=== PATIENT | female | born 1980 | race Caucasian/White ===

== ENCOUNTER 2016-11-04 06:39 | Emergency (ER) ==
[2016-11-04] MEDS ORDERED: ZOFRAN ODT PO ONE (07:48)
[2016-11-04 07:57] VITALS: BP 188/127
[2016-11-04 08:07] LABS: URINE SOURCE CLEAN CATCH
[2016-11-04 08:27] LABS: BILIRUBIN URINE NEGATIVE (NEGATIVE); BLOOD URINE 2+ (NEGATIVE); CLARITY CLEAR (CLEAR); COLOR YELLOW; GLUCOSE URINE NEGATIVE (NEGATIVE); LEUKOCYTES URINE 2+ (NEGATIVE); NITRITE URINE NEGATIVE (NEGATIVE); PROTEIN URINE NEGATIVE (NEGATIVE); SP GRAVITY URINE 1.015; UROBILINOGEN URINE NORMAL
[2016-11-04 08:33] LABS: URINE CULTURE PL NEEDED? YES; URINE EPITHELIAL CELLS >10 /HPF (<10)
[2016-11-04] MEDS ORDERED: THORAZINE IM ONE (08:53)
[2016-11-04] MEDS ORDERED: FLAGYL PO ONE (08:53)
[2016-11-04] MEDS ORDERED: FLAGYL ONE (08:59)
--- NOTE | 2016-11-04 09:12 | PROVIDER DOCUMENTATION ---
HPI-Abdominal Pain/GI Problem - General Chief Complaint: Nausea/Vomiting Stated Complaint: VOMITING Time Seen by Provider: 11/04/16 07:52 Source: patient Allergies/Adverse Reactions: Patient Allergies Allergy/AdvReac Type Severity Reaction Status Date / Time No Known Allergies Allergy Verified 11/04/16 07:56 Home Medications: Hydrocodone/Acetaminophen [[place] 7.5-325 Tablet] 1 each PO BID 10/18/16 Lisinopril/Hydrochlorothiazide [Lisinopril-Hctz 20-12.5 mg Tab] 1 each PO DAILY 10/18/16 - History of Present Illness-ABD Nature of Presenting Problems: Reports to er with cc of nausea and vomiting since yesterday with epigastric pain from vomiting. Pt reports possible bladder infection with dysuria. Denies f ,c,d. Abdominal Pain Onset Location: reports: epigastric Quality of Pain: reports: aching Severity in ED: reports: moderate Onset/Duration: reports: 24 hours ago Timing: reports: still present Bruising or Bleeding Gums?: No Similar Symptoms Previously?: No Recently seen or treated by another doctor?: No Review of Systems - Adult - REVIEW OF SYSTEMS - ADULT Constitutional: denies: chills, fever, fatique Eyes: reports: no symptoms reported Ears, Nose, Mouth & Throat: reports: no symptoms reported Cardiovascular: denies: chest pain, irregular heart rate, orthopnea Respiratory: denies: cough, shortness of breath, wheezing Gastrointestinal: reports: abdominal pain, nausea, vomiting. denies: diarrhea, difficulty swallowing, frequent heartburn Genitourinary: reports: see HPI, dysuria. denies: frequent UTI's, hematuria, hesitency Musculoskeletal: reports: no symptoms reported Integumentary: reports: no symptoms reported Neurological: reports: no symptoms reported Psychiatric: reports: no symptoms reported Endocrine: reports: no symptoms reported Hematologic/Lymphatic: reports: no symptoms reported Allergic/Immunologic: reports: no symptoms reported All Other Systems: Reviewed and Negative Past History - Adult - PAST MEDICAL HISTORY-ADULT Review of Records: reports: Nursing Assessment Review Major Childhood Illnesses: reports: denies history Cardiovascular: reports: HTN, hyperlipidemia Respiratory: reports: denies history, other (heavy smoker) Gastrointestinal: reports: GERD, other (cyclic vomiting syndrome) Obstetrical/Gynecological: denies: ectopic , PID/STD Genitourinary: reports: chronic UTI's, other Musculoskeletal: reports: chronic pain (back), intervertebral disc disease, other (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) Neurological: reports: denies history Psychiatric: reports: bipolar Endocrine/Immune: reports: Diabetes (gestational) Other Conditions: reports: denies history - PRIOR SURGERIES/PROCEDURES Surgical/Procedure History: reports: orthopedic (extremity) (fixed club feet) - PRIOR HOSPITALIZATIONS Prior Hospitalizations: reports: for similar symptoms - IMMUNIZATION STATUS Childhood Immunizations: See Nurse Assessment Flu Vaccine: See Nurse Assessment - FAMILY HISTORY Family History: reviewed, not pertinent - SOCIAL HISTORY Smoking: denies Substance Use: alcohol Alcohol Use Frequency: occasionally Physical Exam-General - PHYSICAL EXAM-ADULT Initial Vital Signs Reviewed: Yes - CONSTITUTIONAL General Appearance: appears well, alert, no apparent distress, other (vomited twice while in ER) - EYES Eyes: PERRL/EOMI, pink conjunctivae - HEAD, EARS, NOSE, MOUTH & THROAT HENMT: normocephalic/atraumatic, moist mucous membranes, normal ENT inspection, TMs normal, pharynx normal - NECK Neck: non-tender, full range of motion, normal inspection - RESPIRATORY Respiratory: chest non-tender, lungs clear, normal breath sounds - CARDIOVASCULAR Cardiovascular: normal peripheral pulses, regular rate, rhythm, no edema, no gallop, no JVD, no murmur - GASTROINTESTINAL (ABDOMEN) Abdominal Exam: normal bowel sounds, soft, no organomegaly, no pulsatile mass, tenderness (mild ttp epi) - LYMPHATIC Lymphatic: no adenopathy - MUSCULOSKELETAL Back Exam: normal inspection, no CVA tenderness, no vertebral tenderness Extremity: normal range of motion, non-tender - SKIN Integumentary: normal color, normal turgor, warm/dry - NEUROLOGIC Neurologic: grossly normal, no motor/sensory deficits - PSYCHIATRIC Psych/Mental Status: normal mood/affect, normal thought content, normal thought process, oriented x 3 Progress - PLAN OF CARE/RESULTS Progress/Plan/Lab Results: Orders Category Date Time Status TEST-URINE [PREG] Stat Lab 11/04/16 08:00 Completed UA [URINALYSIS PL W/POSS RFLX CULT] [URINALYSIS] Stat Lab 11/04/16 08:00 Completed URINE CULTURE [RM] Routine Lab 11/04/16 08:34 Ordered Chlorpromazine [Thorazine] Med 11/04/16 08:53 Discontinued 50 mg IM NOW ONE Metronidazole [Flagyl] Med 11/04/16 08:59 Discontinued 500 mg .ROUTE .STK-MED ONE Metronidazole [Flagyl] Med 11/04/16 08:53 Discontinued 500 mg PO NOW ONE Ondansetron Odt [Zofran Odt] Med 11/04/16 07:48 Discontinued 8 mg PO NOW ONE Vital Signs - 24 hr 11/04/16 07:53 Temperature 97.6 F Pulse Rate 76 Respiratory 18 Rate Blood Pressure 188/127 O2 Sat by Pulse 98 Oximetry Laboratory Tests 11/04/16 11/04/16 08:00 08:00 Urine Source CLEAN CATCH Urine Color YELLOW Urine Clarity CLEAR Urine pH 8.0 Ur Specific [place] 1.015 Urine Protein NEGATIVE Urine Ketones 1+(Small) A Urine Blood 2+ A Urine Nitrite NEGATIVE Urine Bilirubin NEGATIVE Urine Urobilinogen NORMAL Urine Microscopic RBC 10-20 A Urine WBC 2+ A Urine Microscopic WBC 10-20 A Ur Epithelial Cells >10 A Urine Bacteria 1+ Urine Glucose NEGATIVE Urine Test NEGATIVE Departure - Departure Time of Disposition Order: 09:12 DIAGNOSIS: UTI (urinary tract infection) Qualifiers: Urinary tract infection type: site unspecified Hematuria presence: without hematuria Qualified Code(s): N39.0 - Urinary tract infection, site not specified Nausea & vomiting Qualifiers: Vomiting type: unspecified Vomiting Intractability: non-intractable Qualified Code(s): R11.2 - Nausea with vomiting, unspecified Disposition: HOME 01 Certified Medical Emergency: Emergent Condition: Stable Additional Instructions: Drink plenty of fluids ED Follow Up Instructions: You have been treated by a care provider in the Emergency Department. These instructions are being provided to you so you can have an understanding of how to care for yourself upon discharge. Upon discharge from the Emergency Department, you are responsible for making arrangements for follow-up care by a physician of your choice. Take all prescribed medications as directed. Return to the Emergency Department immediately for any new or worsening symptoms. You may call the Physician Referral phone number at [phone] to obtain a list of Physicians who are taking new patients. Attestation - Scribe Verification/Attestation Scribe:: Victorina Parks Acting as Scribe for:: Carli Parks Scribe documention review:: This chart was documented by a scribe and accurately reflects the service the provider performed and the decisions made by the provider.
== END 2016-11-04 10:24 | disposition home or self-care (01) ==
LOC: P.ED 06:39
DX: N39.0 Urinary tract infection, site not specified (principal); R11.2 Nausea with vomiting, unspecified; R10.13 Epigastric pain; R30.0 Dysuria; R10.816 Epigastric abdominal tenderness; I10 Essential (primary) hypertension; E78.5 Hyperlipidemia, unspecified; K21.9 Gastro-esophageal reflux disease without esophagitis; G89.29 Other chronic pain; M54.9 Dorsalgia, unspecified; Z79.899 Other long term (current) drug therapy; Z87.440 Personal history of urinary (tract) infections
CPT/HCPCS: 81001; 81025; 87088; 96372; J3230

== ENCOUNTER 2016-11-04 18:07 | Emergency (ER) ==
--- NOTE | 2016-11-04 19:14 | PROVIDER DOCUMENTATION ---
HPI-General Adult <Damien CorriganAlexandra - Last Filed: 11/04/16 22:18> - General Source: patient - History of Present Illness -Gen Adult Nature of Presenting Problems: 36 y/o f presents to the ed with N/V with an onset of yesterday. pt states she hasn't been able to keep anything down. upon arrival, per nurse the pt was sticking her fingers in her throat causing herself to vomit. pt denies any other symptoms. Pt has a 7 yr hx of N/V and currently is a pt of Dr. Miller (GI) . Location of Pain/Injury: reports: generalized Pain Radiation: reports: no radiation Quality of Pain: reports: aching Severity: reports: mild Onset/Duration: reports: 24 hours ago Timing: reports: still present Associated Symptoms: reports: nausea, vomiting Similar Symptoms Previously?: No Recently seen or treated by another doctor?: No <Katty Cardozo - Last Filed: 11/04/16 23:15> - General Chief Complaint: Nausea/Vomiting Stated Complaint: VOMITING Time Seen by Provider: 11/04/16 19:07 Allergies/Adverse Reactions: Patient Allergies Allergy/AdvReac Type Severity Reaction Status Date / Time No Known Allergies Allergy Verified 11/04/16 20:11 Home Medications: Hydrocodone/Acetaminophen [[place] 7.5-325 Tablet] 1 each PO BID 10/18/16 Lisinopril/Hydrochlorothiazide [Lisinopril-Hctz 20-12.5 mg Tab] 1 each PO DAILY 10/18/16 Review of Systems - Adult - REVIEW OF SYSTEMS - ADULT Constitutional: denies: chills, fever Cardiovascular: denies: chest pain, palpitations Gastrointestinal: reports: nausea, vomiting. denies: constipation, diarrhea <Katty Cardozo - Last Filed: 11/04/16 23:15> Past History - Adult - PAST MEDICAL HISTORY-ADULT Review of Records: reports: Old Records Reviewed, Nursing Assessment Review, Medications Reviewed Major Childhood Illnesses: reports: denies history Cardiovascular: reports: HTN, hyperlipidemia Respiratory: reports: denies history, other (heavy smoker) Gastrointestinal: reports: GERD, other (cyclic vomiting syndrome) Obstetrical/Gynecological: denies: ectopic , PID/STD Genitourinary: reports: chronic UTI's, other Musculoskeletal: reports: chronic pain (back), intervertebral disc disease, other (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) Neurological: reports: denies history Psychiatric: reports: bipolar Endocrine/Immune: reports: Diabetes (gestational) Other Conditions: reports: denies history - PRIOR SURGERIES/PROCEDURES Surgical/Procedure History: reports: orthopedic (extremity) (fixed club feet) - PRIOR HOSPITALIZATIONS Prior Hospitalizations: reports: for similar symptoms - IMMUNIZATION STATUS Childhood Immunizations: See Nurse Assessment Flu Vaccine: See Nurse Assessment - FAMILY HISTORY Family History: reviewed, not pertinent - SOCIAL HISTORY Smoking: cigarettes, less than 1 pack/day Provider spent 3-5 mins advising pt. on dangers of tobacco.: Discussed manners to quit use, and f/u contacts for add'l counseling. Substance Use: alcohol Alcohol Use Frequency: occasionally <Katty Cardozo - Last Filed: 11/04/16 23:15> Physical Exam-General - PHYSICAL EXAM-ADULT Initial Vital Signs Reviewed: Yes - CONSTITUTIONAL General Appearance: alert, no apparent distress - EYES Eyes: PERRL/EOMI, pink conjunctivae, fundi clear, no AV nicking - HEAD, EARS, NOSE, MOUTH & THROAT HENMT: normocephalic/atraumatic, moist mucous membranes, normal ENT inspection - NECK Neck: non-tender, full range of motion, supple - RESPIRATORY Respiratory: chest non-tender, lungs clear, normal breath sounds - CARDIOVASCULAR Cardiovascular: normal peripheral pulses, regular rate, rhythm - GASTROINTESTINAL (ABDOMEN) Abdominal Exam: normal bowel sounds, soft, tenderness (suprapubic) - MUSCULOSKELETAL Back Exam: normal inspection - SKIN Integumentary: normal color, normal turgor, warm/dry - PSYCHIATRIC Psych/Mental Status: normal mood/affect, normal thought content, normal thought process, oriented x 3 <Katty Cardozo - Last Filed: 11/04/16 23:15> Progress - PLAN OF CARE/RESULTS Progress/Plan/Lab Results: plan of care: labs, imaging Laboratory Tests 11/04/16 11/04/16 11/04/16 19:55 19:55 21:18 WBC 20.88 H RBC 5.04 Hgb 15.5 Hct 44.5 MCV 88.3 MCH 30.8 MCHC 34.8 RDW Std Deviation 13.4 Plt Count 304 MPV 11.2 H Neut % (Auto) 88.1 H Lymph % (Auto) 5.7 L [place] % (Auto) 6.2 Eos % (Auto) 0.0 Baso % (Auto) 0.0 Neut # (Auto) 18.37 H Lymph # (Auto) 1.20 [place] # (Auto) 1.30 H Eos # (Auto) 0.00 Baso # (Auto) 0.01 Sodium 135 L Potassium 3.2 L Chloride 97 L Carbon Dioxide 21 L Anion Gap 17 BUN 7 L Creatinine 0.6 Estimated GFR/1.73 m2 > 60 BUN/Creatinine Ratio 12 Glucose 136 H Calculated Osmolality 270 Calcium 9.0 Total Bilirubin 0.63 AST 15 ALT 15 Alkaline Phosphatase 81 Total Protein 7.4 Albumin 4.4 Globulin 3.0 Albumin/Globulin Ratio 1.5 Amylase 55 Lipase 17 Urine Source Urine Color Urine Turbidity Urine pH Ur Specific [place] Urine Protein Ur Glucose (Stick) Ur Ketones (Stick) Urine Blood Urine Nitrite Urine Bilirubin Urobilinogen Dipstick Urine Leukocytes Urine WBC (Auto) Urine RBC (Auto) U Epithel Cells (Auto) Urine Bacteria (Auto) Urine Test NEGATIVE 11/04/16 21:18 WBC RBC Hgb Hct MCV MCH MCHC RDW Std Deviation Plt Count MPV Neut % (Auto) Lymph % (Auto) [place] % (Auto) Eos % (Auto) Baso % (Auto) Neut # (Auto) Lymph # (Auto) [place] # (Auto) Eos # (Auto) Baso # (Auto) Sodium Potassium Chloride Carbon Dioxide Anion Gap BUN Creatinine Estimated GFR/1.73 m2 BUN/Creatinine Ratio Glucose Calculated Osmolality Calcium Total Bilirubin AST ALT Alkaline Phosphatase Total Protein Albumin Globulin Albumin/Globulin Ratio Amylase Lipase Urine Source CLEAN CATCH Urine Color YELLOW Urine Turbidity CLEAR Urine pH 6.5 Ur Specific [place] 1.013 Urine Protein 50 A Ur Glucose (Stick) NEGATIVE Ur Ketones (Stick) 80 A Urine Blood SMALL A Urine Nitrite NEGATIVE Urine Bilirubin NEGATIVE Urobilinogen Dipstick NORMAL Urine Leukocytes MODERATE A Urine WBC (Auto) 10-20 A Urine RBC (Auto) 20-40 A U Epithel Cells (Auto) <10 Urine Bacteria (Auto) 1+ Urine Test Orders Category Date Time Status Saline Loc DIRECTED Care 11/04/16 18:46 Active NPO Diet 11/04/16 18:46 Active ABDOMEN/PELVIS W/O CONTRAST [CT] Stat Exams 11/04/16 22:10 Taken AMYLASE [CHEM] Stat Lab 11/04/16 19:55 Completed CBC WITH ELECTRONIC DIFF [HEME] Stat Lab 11/04/16 19:55 Completed COMPREHENSIVE METABOLIC PANEL [CHEM] Stat Lab 11/04/16 19:55 Completed LIPASE [CHEM] Stat Lab 11/04/16 19:55 Completed TEST-URINE [PREG] Stat Lab 11/04/16 21:18 Completed URINALYSIS W/POSS RFLX CULT [URINALYSIS] Stat Lab 11/04/16 21:18 Completed 0.9% Sodium Chloride Inj [Ns] 1,000 ml Med 11/04/16 19:24 Discontinued IV 999 mls/hr Famotidine [Pepcid] Med 11/04/16 19:30 Active 20 mg IV Q12H Ondansetron [Zofran] Med 11/04/16 19:40 Discontinued 4 mg IV NOW ONE Piperacil/Tazobact 3.375 gm/Ns [Zosyn 3.375 gm/Ns] 50 Med 11/04/16 22:04 Discontinued ml IV NOW Promethazine [Phenergan] Med 11/04/16 21:01 Discontinued 12.5 mg IV NOW ONE Sodium Chloride 0.9% Med 11/04/16 21:01 Discontinued 10 ml INJ NOW ONE Sodium Chloride 0.9% Med 11/04/16 19:30 Active 5 - 10 ml INJ DIRECTED Vital Signs - 24 hr 11/04/16 18:42 Temperature 98.8 F Pulse Rate 94 H Respiratory 18 Rate Blood Pressure 173/98 O2 Sat by Pulse 97 Oximetry - CT/MRI 1 CT Study: Abdomen CT Results: NAF <Katty Cardozo - Last Filed: 11/04/16 23:15> Departure - Departure Certified Medical Emergency: Emergent <Damien Corrigan - Last Filed: 11/04/16 22:18> - Departure Time of Disposition Order: 23:14 Certified Medical Emergency: Emergent <Katty Cardozo - Last Filed: 11/04/16 23:15> - Departure DIAGNOSIS: History of leukocytosis Leukocytosis Qualifiers: Leukocytosis type: unspecified Qualified Code(s): D72.829 - Elevated white blood cell count, unspecified UTI (urinary tract infection) Qualifiers: Urinary tract infection type: site unspecified Hematuria presence: without hematuria Qualified Code(s): N39.0 - Urinary tract infection, site not specified Cyclic vomiting syndrome Qualifiers: Vomiting Intractability: unspecified Nausea presence: unspecified Qualified Code(s): G43.A0 - Cyclical vomiting, not intractable Disposition: HOME 01 Condition: Stable Additional Instructions: ED Follow Up Instructions: You have been treated by a care provider in the Emergency Department. These instructions are being provided to you so you can have an understanding of how to care for yourself upon discharge. Upon discharge from the Emergency Department, you are responsible for making arrangements for follow-up care by a physician of your choice. Take all prescribed medications as directed. Return to the Emergency Department immediately for any new or worsening symptoms. You may call the Physician Referral phone number at [phone] to obtain a list of Physicians who are taking new patients. Referrals: Ban Ken CRNP [Primary Care Provider] - Diego Armstrong MD [STAFF PHYSICIAN] - Attestation - Scribe Verification/Attestation Scribe:: Katty Cardozo Acting as Scribe for:: Damien Corrigan Scribe documention review:: This chart was documented by a scribe and accurately reflects the service the provider performed and the decisions made by the provider. <Katty Cardozo - Last Filed: 11/04/16 23:15> Physician Attestation
[2016-11-04] MEDS ORDERED: NS 1,000 ML IV ONE (19:24)
[2016-11-04] MEDS ORDERED: PEPCID IV SCH (19:30)
[2016-11-04] MEDS ORDERED: SODIUM CHLORIDE 0.9% INJ SCH (19:30)
[2016-11-04] MEDS ORDERED: ZOFRAN IV ONE (19:40)
[2016-11-04 20:28] LABS: HEMATOCRIT 44.5 % (37.0-47.0); HEMOGLOBIN 15.5 g/dL (12.0-16.0); LYMPH% 5.7 % (20.5-51.1); MANUAL DIFF NEEDED? NO; MCH 30.8 PG (27-31); MCHC 34.8 g/dL (33-37); MCV 88.3 FL (81-99); MONO% 6.2 % (1.7-9.3); MPV 11.2 FL (7.4-10.4); NEUT% 88.1 % (42.2-75.2); PLT 304 X1000 (130-400); RBC 5.04 XMIL (4.2-5.4)
[2016-11-04 20:48] LABS: AGAP 17; ALBUMIN 4.4 g/dL (3.5-5.0); ALKALINE PHOSPHATASE 81 U/L (32-104); AMYLASE 55 U/L (20-200); BUN 7 mg/dL (8-22); CHLORIDE 97 mmol/L (98-107); COSMO 270; GOT 15 U/L (10-30); GPT 15 U/L (10-36); LIPASE 17 U/L (13-60); POTASSIUM 3.2 mmol/L (3.5-5.1); SODIUM 135 mmol/L (136-145); TCO2 21 mmol/L (25-35); TOTAL BILIRUBIN 0.63 mg/dL (0.20-1.00); TOTAL PROTEIN 7.4 g/dL (6.3-8.3)
[2016-11-04] MEDS ORDERED: PHENERGAN IV ONE (21:01)
[2016-11-04] MEDS ORDERED: SODIUM CHLORIDE 0.9% INJ ONE (21:01)
[2016-11-04 21:25] LABS: URINE CULTURE NEEDED? NO; URINE MICRO REVIEW NEEDED? NO; URINE SOURCE CLEAN CATCH
[2016-11-04 21:30] LABS: BILIRUBIN URINE NEGATIVE (NEGATIVE); BLOOD URINE SMALL (NEGATIVE); COLOR YELLOW; GLUCOSE URINE NEGATIVE (NEGATIVE); LEUKOCYTES URINE MODERATE (NEGATIVE); NITRITE URINE NEGATIVE (NEGATIVE); PH URINE 6.5; PROTEIN URINE 50 mg/dL (NEGATIVE); SP GRAVITY URINE 1.013; TURBIDITY URINE CLEAR (CLEAR); UR EPITHELIAL CELLS <10 /HPF (<10); URINE BACTERIA 1+ /HPF; URINE RBC 20-40 /HPF (<10); UROBILINOGEN URINE NORMAL (NORMAL)
[2016-11-04] MEDS ORDERED: ZOSYN 3.375 GM/NS 50 ML IV ONE (22:04)
[2016-11-04 23:56] VITALS: BP 154/101
--- NOTE | 2016-11-05 09:14 | Diag Imaging Result Document ---
PROCEDURE NAME: ABDOMEN/PELVIS W/O CONTRAST - 11/04/2016 CT ABDOMEN AND PELVIS WITHOUT CONTRAST: COMPARISON: 02/02/2016. FINDINGS: There is a calcified granuloma in the left lower lobe as well as minimal left basilar atelectasis. There is a small cortical calcification associated with a cortical defect involving the anterior right kidney. This likely represents scar from previous ischemic or infectious insult. No renal or ureteral stones are identified, and there is no hydronephrosis. The urinary bladder is unremarkable. The appendix is normal. No focal inflammatory change, free abdominal gas, or free fluid is identified. The remainder of the solid viscera of the abdomen and pelvis and the remainder of the GI tract is essentially unremarkable. IMPRESSION: 1. Tiny cortical calcification associated with focal scarring involving the anterior right kidney. No renal or ureteral stones are identified otherwise, and there is no hydronephrosis. 2. No definite acute pathology, otherwise.
== END 2016-11-04 23:56 | disposition home or self-care (01) ==
LOC: ED 18:07
DX: N39.0 Urinary tract infection, site not specified (principal); D72.829 Elevated white blood cell count, unspecified; G43.A0 Cyclical vomiting, in migraine, not intractable; R11.2 Nausea with vomiting, unspecified; I10 Essential (primary) hypertension; E78.5 Hyperlipidemia, unspecified; K21.9 Gastro-esophageal reflux disease without esophagitis; G89.29 Other chronic pain; M54.9 Dorsalgia, unspecified; R10.819 Abdominal tenderness, unspecified site; F17.210 Nicotine dependence, cigarettes, uncomplicated; Z79.899 Other long term (current) drug therapy; Z71.6 Tobacco abuse counseling; Z87.440 Personal history of urinary (tract) infections
CPT/HCPCS: 74176; 80053; 81001; 81025; 82150; 83690; 85025; 96365; 96375; J2543; J2550; J7030

== ENCOUNTER 2017-01-12 11:05 | Emergency (ER) ==
[2017-01-12 11:45] LABS: URINE MICRO REVIEW NEEDED? NO; URINE SOURCE CLEAN CATCH
[2017-01-12 11:51] LABS: BILIRUBIN URINE NEGATIVE (NEGATIVE); BLOOD URINE SMALL (NEGATIVE); COLOR YELLOW; GLUCOSE URINE NEGATIVE (NEGATIVE); LEUKOCYTES URINE TRACE (NEGATIVE); NITRITE URINE NEGATIVE (NEGATIVE); PROTEIN URINE TRACE mg/dL (NEGATIVE); SP GRAVITY URINE 1.021; TURBIDITY URINE CLEAR (CLEAR); UR EPITHELIAL CELLS <10 /HPF (<10); URINE BACTERIA 1+ /HPF; URINE CULTURE NEEDED? YES; UROBILINOGEN URINE NORMAL (NORMAL)
[2017-01-12 12:14] LABS: MANUAL DIFF NEEDED? NO
[2017-01-12 12:19] LABS: BASO% 0.2 % (0.0-0.8); EOS# 0.02 X1000 (0.0-0.7); EOS% 0.1 % (0.0-10.0); HEMATOCRIT 42.8 % (37.0-47.0); IMM GRAN# 0.06 X1000 (0.0-0.04); IMM GRAN% 0.4 % (0.0-0.5); LYMPH# 2.82 X1000 (1.2-3.4); LYMPH% 16.9 % (20.5-51.1); MCH 31.3 PG (27-31); MCV 89.4 FL (81-99); MONO# 1.08 X1000 (0.11-0.59); MONO% 6.5 % (1.7-9.3); MPV 10.8 FL (7.4-10.4); NEUT% 75.9 % (42.2-75.2); PLT 344 X1000 (130-400); RBC 4.79 XMIL (4.2-5.4)
[2017-01-12] MEDS ORDERED: NS 1,000 ML IV ONE (12:34)
[2017-01-12] MEDS ORDERED: REGLAN IV ONE (12:34)
[2017-01-12 12:43] LABS: AGAP 17; ALBUMIN 4.4 g/dL (3.5-5.0); ALKALINE PHOSPHATASE 68 U/L (32-104); AMYLASE 67 U/L (20-200); BUN 8 mg/dL (8-22); CALCIUM 9.3 mg/dL (8.8-10.2); CHLORIDE 100 mmol/L (98-107); COSMO 276; GOT 19 U/L (10-30); GPT 14 U/L (10-36); LIPASE 23 U/L (13-60); POTASSIUM 3.6 mmol/L (3.5-5.1); SODIUM 138 mmol/L (136-145); TCO2 21 mmol/L (25-35); TOTAL BILIRUBIN 0.22 mg/dL (0.20-1.00); TOTAL PROTEIN 7.3 g/dL (6.3-8.3)
[2017-01-12] MEDS ORDERED: SODIUM CHLORIDE 0.9% INJ ONE ×2 (13:06→14:13)
[2017-01-12] MEDS ORDERED: PHENERGAN IV ONE ×2 (13:06→14:13)
--- NOTE | 2017-01-12 13:07 | PROVIDER DOCUMENTATION ---
HPI-Abdominal Pain/GI Problem - General Chief Complaint: Nausea/Vomiting Stated Complaint: VOMITING Time Seen by Provider: 01/12/17 11:22 Source: patient Allergies/Adverse Reactions: Patient Allergies Allergy/AdvReac Type Severity Reaction Status Date / Time No Known Allergies Allergy Verified 01/12/17 11:32 Home Medications: Home Medication List Medication Instructions Recorded Confirmed Last Taken Type Omeprazole [Prilosec] 40 mg PO DAILY@0700 #60 capsule 12/22/16 01/12/17 20:00 Rx Ciprofloxacin HCl [Cipro] 500 mg PO BID #14 tablet 01/12/17 Unknown Rx Dicyclomine [Bentyl] 10 mg PO 4XDAY #60 capsule 01/12/17 Unknown Rx Lisinopril/Hydrochlorothiazide 1 each PO HS 01/12/17 01/12/17 01/11/17 20:00 History [Lisinopril-Hctz 20-12.5 mg Tab] Promethazine [Phenergan] 25 mg PO Q6H PRN PRN #20 tablet 01/12/17 Unknown Rx Promethazine [Phenergan] 25 mg [place] Q6H PRN PRN #14 supp 01/12/17 Unknown Rx - History of Present Illness-ABD Nature of Presenting Problems: 36 y/o WF c/o abd. pain, N/V, cough x 1 day. Pt states that she has had a cough for 2 weeks, but started coughing with vomiting today. Reports abd. pain in LLQ and RLQ. States hx of abd. problems in the past; sees Dr. Miller. Denies any hematemesis or hematochezia or dark tarry stools. Review of Systems - Adult - REVIEW OF SYSTEMS - ADULT Constitutional: reports: no symptoms reported. denies: chills, fever Eyes: reports: no symptoms reported. denies: blurred vision, double vision Ears, Nose, Mouth & Throat: reports: no symptoms reported. denies: ear pain, nose pain Cardiovascular: reports: no symptoms reported. denies: chest pain, palpitations Respiratory: reports: see HPI, cough, wheezing. denies: shortness of breath Gastrointestinal: reports: see HPI, abdominal pain, nausea, vomiting. denies: constipation, diarrhea Genitourinary: reports: no symptoms reported. denies: dysuria, frequency Musculoskeletal: reports: no symptoms reported. denies: joint pain, joint swelling Integumentary: reports: no symptoms reported. denies: nail changes, rash Neurological: reports: no symptoms reported. denies: numbness, paresthesia Psychiatric: reports: no symptoms reported Endocrine: reports: no symptoms reported. denies: cold intolerance, heat intolerance Hematologic/Lymphatic: reports: no symptoms reported. denies: easy bruising, prolonged bleeding Allergic/Immunologic: reports: no symptoms reported All Other Systems: Reviewed and Negative Past History - Adult - PAST MEDICAL HISTORY-ADULT Review of Records: reports: Nursing Assessment Review, Medications Reviewed Major Childhood Illnesses: reports: denies history Cardiovascular: reports: HTN, hyperlipidemia Respiratory: reports: denies history, other (heavy smoker) Gastrointestinal: reports: GERD, other (cyclic vomiting syndrome) Obstetrical/Gynecological: denies: ectopic , PID/STD Genitourinary: reports: chronic UTI's, other Musculoskeletal: reports: chronic pain (back), intervertebral disc disease, other (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) Neurological: reports: denies history Psychiatric: reports: bipolar Endocrine/Immune: reports: Diabetes (gestational) Other Conditions: reports: denies history - PRIOR SURGERIES/PROCEDURES Surgical/Procedure History: reports: orthopedic (extremity) (fixed club feet) - PRIOR HOSPITALIZATIONS Prior Hospitalizations: reports: for similar symptoms - IMMUNIZATION STATUS Childhood Immunizations: See Nurse Assessment Flu Vaccine: See Nurse Assessment - FAMILY HISTORY Family History: reviewed, not pertinent - SOCIAL HISTORY Smoking: cigarettes, less than 1 pack/day Provider spent 3-5 mins advising pt. on dangers of tobacco.: Discussed manners to quit use, and f/u contacts for add'l counseling. Physical Exam-General - PHYSICAL EXAM-ADULT Initial Vital Signs Reviewed: Yes - CONSTITUTIONAL General Appearance: alert, moderate distress - EYES Eyes: pink conjunctivae - HEAD, EARS, NOSE, MOUTH & THROAT HENMT: normocephalic/atraumatic - NECK Neck: normal inspection - RESPIRATORY Respiratory: lungs clear, no respiratory distress, no accessory muscle use, wheezing. negative: crackles, rales, rhonchi, stridor - CARDIOVASCULAR Cardiovascular: regular rate, rhythm. negative: bradycardia, tachycardia - GASTROINTESTINAL (ABDOMEN) Abdominal Exam: normal bowel sounds, soft, tenderness (generalized). negative: distended, guarding, rigid, rebound, McBurney's point tenderness, Zamora's sign - MUSCULOSKELETAL Back Exam: no CVA tenderness Extremity: normal gait - SKIN Integumentary: normal color, normal turgor, warm/dry - NEUROLOGIC Neurologic: negative: aphasia - PSYCHIATRIC Psych/Mental Status: normal thought content, normal thought process, oriented x 3, tearful Progress - PLAN OF CARE/RESULTS Progress/Plan/Lab Results: Discussed pt with Dr. Cruz; he agreed with d/c plan after reviewing labwork and Xrays. Discussed d/c plan and f/u with pt. - XRAY 1 XRAY Study: Chest Impression: See EMR Report (No Pneumonia, per Dr. Hood) 2 XRAY Study: Abdomen Impression: See EMR Report (No acute abnormality, per Dr. Hood) Departure - Departure Time of Disposition Order: 14:03 DIAGNOSIS: History of leukocytosis, Cough UTI (urinary tract infection) Qualifiers: Urinary tract infection type: acute cystitis Hematuria presence: with hematuria Qualified Code(s): N30.01 - Acute cystitis with hematuria Nausea & vomiting Qualifiers: Vomiting type: unspecified Vomiting Intractability: unspecified Qualified Code( s): R11.2 - Nausea with vomiting, unspecified Disposition: HOME 01 Certified Medical Emergency: Emergent Condition: Stable Additional Instructions: Take medications as directed. Follow up with Dr. Miller for further management. Drink plenty of water. ED Follow Up Instructions: You have been treated by a care provider in the Emergency Department. These instructions are being provided to you so you can have an understanding of how to care for yourself upon discharge. Upon discharge from the Emergency Department, you are responsible for making arrangements for follow-up care by a physician of your choice. Take all prescribed medications as directed. Return to the Emergency Department immediately for any new or worsening symptoms. You may call the Physician Referral phone number at [phone] to obtain a list of Physicians who are taking new patients. Prescriptions: Dicyclomine [Bentyl] 10 mg PO 4XDAY #60 capsule Ciprofloxacin HCl [Cipro] 500 mg PO BID #14 tablet Promethazine [Phenergan] 25 mg PO Q6H PRN PRN #20 tablet PRN Reason: Nausea Promethazine [Phenergan] 25 mg [place] Q6H PRN PRN #14 supp PRN Reason: Nausea Referrals: None,PCP [Primary Care Provider] - Catie Miller MD [STAFF PHYSICIAN] - Attestation - Physician/ MARLEN Attestation Patient care was provided by Advanced Practice Provider:: Yes Advanced Practice Provider:: Rachel Lamas Advanced Practice Provider documentation review:: The Mid-level provider documentation, treatment plan and medical decision making was reviewed by the physician who agrees with all treatment and medical decision making by the MLP.
[2017-01-12 13:18] LABS: UR AMPHETAMINES QUAL NONE DETECTED (NONE DETECT); UR BARBITUATES QUAL NONE DETECTED (NONE DETECT); UR BENZODIAZEPIN QUAL NONE DETECTED (NONE DETECT); UR CANNABINOIDS QUAL NONE DETECTED (NONE DETECT); UR COCAINE QUAL NONE DETECTED (NONE DETECT); UR METHADONE QUAL NONE DETECTED (NONE DETECT); UR OPIATES QUAL NONE DETECTED (NONE DETECT); UR OXYCODONE QUAL NONE DETECTED (NONE DETECT); UR PCP QUAL NONE DETECTED (NONE DETECT)
--- NOTE | 2017-01-12 14:03 | Diag Imaging Result Document ---
PROCEDURE NAME: CHEST-2 VIEWS - 01/12/2017 FRONTAL AND LATERAL CHEST, TWO VIEWS: COMPARISON: 10/23/2016. FINDINGS: The lungs are well expanded. The heart is not enlarged. The vessels are not distended. There are no infiltrates. No pleural effusions. IMPRESSION: No pneumonia.
[2017-01-12] MEDS ORDERED: ROCEPHIN 1 GM/NS 50 ML IV ONE (14:05)
--- NOTE | 2017-01-12 14:08 | Diag Imaging Result Document ---
PROCEDURE NAME: ABDOMEN FLAT/UPRIGHT - 01/12/2017 FLAT AND UPRIGHT, TWO VIEWS: COMPARISON: 10/23/2016. FINDINGS: No free air beneath the diaphragm. There is mild scoliosis. No organomegaly. No abnormal abdominal calcifications. There are several pelvic calcifications consistent with phleboliths. IMPRESSION: No acute abnormality.
[2017-01-12] MEDS ORDERED: THORAZINE IM ONE (15:11)
[2017-01-12 16:15] VITALS: BP 152/106
== END 2017-01-12 16:57 | disposition home or self-care (01) ==
LOC: ED 11:05
DX: N30.01 Acute cystitis with hematuria (principal); R11.2 Nausea with vomiting, unspecified; R05 Cough; Z86.2 Personal history of diseases of the blood and blood-forming organs and certain disorders involving the immune mechanism; R06.2 Wheezing; R10.84 Generalized abdominal pain; I10 Essential (primary) hypertension; E78.5 Hyperlipidemia, unspecified; K21.9 Gastro-esophageal reflux disease without esophagitis; Z87.440 Personal history of urinary (tract) infections; M54.9 Dorsalgia, unspecified; G89.29 Other chronic pain; F17.210 Nicotine dependence, cigarettes, uncomplicated; Z71.6 Tobacco abuse counseling; Z79.899 Other long term (current) drug therapy
CPT/HCPCS: 71020; 74020; 80053; 81001; 81025; 82150; 83690; 85025; 87088; 96365; 96372; 96375; 96376; G0480; J0696; J2550; J2765; J3230; J7030; 80324; 80345; 80346; 80349; 80353; 80358; 80361; 80365; 83992

== ENCOUNTER 2019-08-06 05:44 | Inpatient (IN) ==
[2019-08-06] MEDS ORDERED: REGLAN IV ONE (06:10)
[2019-08-06] MEDS ORDERED: MORPHINE IV ONE (06:18)
[2019-08-06] MEDS ORDERED: NS 1,000 ML IV ONE ×3 (06:18→07:21)
--- NOTE | 2019-08-06 06:34 | PROVIDER DOCUMENTATION ---
HPI-General Adult - General Chief Complaint: Abdominal Pain Stated Complaint: VOMITING/NAUSEA/ABD PAIN Time Seen by Provider: 08/06/19 06:13 Source: patient Allergies/Adverse Reactions: Patient Allergies Allergy/AdvReac Type Severity Reaction Status Date / Time bupropion [From Wellbutrin] Allergy HEADACHE Verified 08/03/19 20:01 citalopram [From Celexa] Allergy Unknown Verified 08/03/19 20:01 ondansetron Allergy HEADACHE Verified 08/03/19 20:01 [From Zofran (as hydrochloride)] sertraline [From Zoloft] Allergy HEADACHE Verified 08/03/19 20:01 fluoxetine [From Prozac] AdvReac Unknown Verified 08/03/19 20:01 Home Medications: Home Medication List Medication Instructions Recorded Confirmed Last Taken Type Lisinopril 20 mg PO DAILY 04/18/19 08/06/19 08/05/19 History - History of Present Illness -Gen Adult Nature of Presenting Problems: Pt presents with n/v, pt was seen by me 3 nights ago for n/v/d, workup was negative and pt was sent home with zofran and abx for a UTI, pt now back with n/v, not tolerating PO, no blood, associated with cramping ap, pt denies f/c, nunes, cp, sob, cough, diarrhea, pt is lying in bed in no acute distress. Location of Pain/Injury: reports: abdomen Pain Radiation: reports: no radiation Quality of Pain: reports: cramping Severity: reports: mild Onset/Duration: reports: 4-6 hours ago Timing: reports: still present Context/Activities at Onset: reports: none Modifying Factors: improves with: nothing Associated Symptoms: reports: nausea, vomiting Similar Symptoms Previously?: Yes Recently seen or treated by another doctor?: Yes Review of Systems - Adult - REVIEW OF SYSTEMS - ADULT Constitutional: reports: no symptoms reported Eyes: reports: no symptoms reported Ears, Nose, Mouth & Throat: reports: no symptoms reported Cardiovascular: reports: no symptoms reported Respiratory: reports: no symptoms reported Gastrointestinal: reports: see HPI Genitourinary: reports: no symptoms reported Musculoskeletal: reports: no symptoms reported Integumentary: reports: no symptoms reported Neurological: reports: no symptoms reported Psychiatric: reports: no symptoms reported Endocrine: reports: no symptoms reported Hematologic/Lymphatic: reports: no symptoms reported Allergic/Immunologic: reports: no symptoms reported All Other Systems: Reviewed and Negative Past History - Adult - PAST MEDICAL HISTORY-ADULT Review of Records: reports: Old Records Reviewed, Nursing Assessment Review, Medications Reviewed, Social history reviewed & non-contributory. 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) Neurological: reports: denies history Psychiatric: reports: bipolar Endocrine/Immune: reports: Diabetes (gestational) Other Conditions: reports: denies history - PRIOR SURGERIES/PROCEDURES Surgical/Procedure History: reports: orthopedic (extremity) (fixed club feet) - PRIOR HOSPITALIZATIONS Prior Hospitalizations: reports: for similar symptoms - IMMUNIZATION STATUS Childhood Immunizations: See Nurse Assessment Flu Vaccine: See Nurse Assessment - FAMILY HISTORY Family History: reviewed, not pertinent Physical Exam-General - PHYSICAL EXAM-ADULT Initial Vital Signs Reviewed: Yes - CONSTITUTIONAL General Appearance: appears well - EYES Eyes: PERRL/EOMI - HEAD, EARS, NOSE, MOUTH & THROAT HENMT: normocephalic/atraumatic - NECK Neck: normal inspection - RESPIRATORY Respiratory: lungs clear, no respiratory distress, no accessory muscle use - CARDIOVASCULAR Cardiovascular: regular rate, rhythm - GASTROINTESTINAL (ABDOMEN) Abdominal Exam: normal bowel sounds, non tender, soft - LYMPHATIC Lymphatic: no adenopathy - MUSCULOSKELETAL Back Exam: normal inspection Extremity: normal range of motion - SKIN Integumentary: normal color - NEUROLOGIC Neurologic: grossly normal - PSYCHIATRIC Psych/Mental Status: normal mood/affect Progress - PLAN OF CARE/RESULTS Progress/Plan/Lab Results: Vital Signs - 8 hr 08/06/19 05:49 Temperature 98.1 F Pulse Rate 93 H Respiratory Rate 18 Blood Pressure 160/115 O2 Sat by Pulse Oximetry 98 Orders Category Date Time Status CBC WITH ELECTRONIC DIFF [HEME] Stat Lab 08/06/19 06:17 Uncollected COMPREHENSIVE METABOLIC PANEL [CHEM] Stat Lab 08/06/19 06:18 Uncollected LACTATE, PLASMA [CHEM] Stat Lab 08/06/19 06:18 Uncollected LIPASE [CHEM] Stat Lab 08/06/19 06:18 Uncollected URINALYSIS W/POSS RFLX CULT [URINALYSIS] Stat Lab 08/06/19 06:18 Uncollected 0.9% Sodium Chloride Inj [Ns] 1,000 ml Med 08/06/19 06:18 Active IV 999 mls/hr Metoclopramide [Reglan] Med 08/06/19 06:10 Discontinued 5 mg IV NOW ONE Morphine Med 08/06/19 06:18 Discontinued 4 mg IV NOW ONE Result Diagrams: 08/06/19 06:20 08/06/19 06:20 - REASSESSMENT Reassessment #1 Time Reassessed: 07:24 Status: unchanged (Seen and examined by me. Case discused with Dr. Meeks at shift change. OLD RECORDS REVIEWED, multiple visits for abdominal pain and vomiting in the past, multiple CT scans, plain films, and nuclear medicine scans. Patient has 2 SIRS criteria and an elevated Lactate, so will give more fluids and IV Zosyn for sepsis possibly due to GI sources.) Reassessment #2 Time Reassessed: 10:46 Status: unchanged (GIven IVF, IV zosyn for sepsis. Multiple doses of anti- emetics. Will try ativan and ask hospitalist to admit. Will also give IV labetalol or HTN) - CT/MRI 1 CT Study: Abdomen Impression: Normal ( EXAM: CT ABD/PELVIS W/IV CONT ONLY INDICATION: abd pain, vomiting, sepsis TECHNIQUE: This exam was performed using automated exposure control, adjustment of mA or kV according to patient size, and/or use of iterative reconstruction technique. COMPARISON: 07/03/2019 FINDINGS: There is likely minimal hepatic steatosis. The liver is unremarkable, otherwise. The gallbladder, spleen, pancreas, and adrenal glands are unremarkable. There is minimal focal cortical scarring versus persistent lobulation involving the right kidney. The kidneys are unremarkable, otherwise. The urinary bladder appears normal. The reproductive tract is unremarkable as imaged. The appendix is normal. No focal bowel wall thickening or bowel obstruction is appreciated. The remainder of the GI tract is unremarkable. No focal inflammatory changes, free abdominal gas, or free fluid is appreciated. [id number] lower lumbar spine degenerative changes are again noted. There is no evidence of acute osseous abnormality. IMPRESSION: Essentially stable abdomen and pelvis with no evidence of acute pathology by CT. Electronically signed by Lenin Majano 08/06/2019 10:29 AM 10/07/19 1029 Interpreting Physician: Lenin Majano MD Dictated Date/Time: 08/06/19 1022 cc: Keyon Garcia MD; Alex Klein MD), See EMR Report - CONSULTS/PCP/HOSPITALIST Notification #1 *Consult/PCP/Hospitalist*: ADRIANNE Brannon, hospitalist, paged at 1048 Time Discussed: 10:51 (admit to [facility]) Consult Disposition: Admit - CHANGE OF SHIFT REPORT (ED Provider) 1 Report Given and Care Transferred to:: Dr. Garcia Time of Transfer: 07:00 Departure - Departure Date of Disposition Decision: 08/06/19 Time of Disposition Decision: 10:51 DIAGNOSIS: Pyelonephritis, Intractable vomiting with nausea Sepsis without acute organ dysfunction Qualifiers: Sepsis type: Escherichia coli Qualified Code(s): A41.51 - Sepsis due to Escherichia coli [E. coli] Hypertension Qualifiers: Hypertension type: essential hypertension Qualified Code(s): I10 - Essential (primary) hypertension Disposition: ADMITTED INPATIENT 09 Certified Medical Emergency: Emergent Condition: Stable Referrals and Follow-Ups: Alex Klein MD [Primary Care Provider] - - Critical Care Note This patient required my direct & personal management of CC.: Yes Total Time (mins): 41 ([facility] systems) Critical Care Statement: This patient required my direct personal management to treat or rule out processes, the absence of which, could potentiallly result in sudden, clinically significant life or limb threatening deterioration. Attestation - Physician/ MARLEN Attestation Patient care was provided by Advanced Practice Provider:: No The physician spent face to face time with patient:: Yes Advanced Practice Provider documentation review:: Supervising physician onsite and consulted in the evaluation and care of this patient. The physician did have a face to face encounter with the patient.
[2019-08-06 06:47] LABS: BILIRUBIN URINE NEGATIVE (NEGATIVE); BLOOD URINE TRACE (NEGATIVE); COLOR YELLOW; GLUCOSE URINE NEGATIVE (NEGATIVE); KETONE URINE 10 mg/dL (NEGATIVE); LEUKOCYTES URINE NEGATIVE (NEGATIVE); NITRITE URINE NEGATIVE (NEGATIVE); PH URINE 6.5; PROTEIN URINE 30 mg/dL (NEGATIVE); SP GRAVITY URINE 1.027; TURBIDITY URINE CLEAR (CLEAR); URINE SOURCE CLEAN CATCH; UROBILINOGEN URINE NORMAL (NORMAL)
[2019-08-06 06:48] LABS: BASO# 0.01 X1000 (0.0-0.2); BASO% 0.1 % (0.0-0.8); EOS# 0.16 X1000 (0.0-0.7); HEMATOCRIT 45.3 % (37.0-47.0); HEMOGLOBIN 15.3 g/dL (12.0-16.0); IMM GRAN# 0.07 X1000 (0.0-0.04); IMM GRAN% 0.4 % (0.0-0.5); LYMPH% 22.5 % (20.5-51.1); MCH 28.6 PG (27-31); MCHC 33.8 g/dL (33-37); MCV 84.7 FL (81-99); MONO# 1.26 X1000 (0.11-0.59); MONO% 8.1 % (1.7-9.3); MPV 11.2 FL (7.4-10.4); NEUT# 10.58 X1000 (1.4-6.5); NEUT% 67.9 % (42.2-75.2); PLT 337 X1000 (130-400); RBC 5.35 XMIL (4.2-5.4); RDW 13.7 % (11.5-14.5); WBC 15.58 X1000 (4.8-10.8)
[2019-08-06 06:49] LABS: UR EPITHELIAL CELLS <10 /HPF (<10); URINE BACTERIA 1+ /HPF; URINE RBC <10 /HPF (<10); URINE WBC <10 /HPF (<10)
[2019-08-06 07:10] LABS: AGAP 16; ALB/GLOB RATIO 1.2; ALBUMIN 4.4 g/dL (3.5-5.0); ALKALINE PHOSPHATASE 86 U/L (32-104); BUN 7 mg/dL (8-22); CALCIUM 9.3 mg/dL (8.8-10.2); CHLORIDE 106 mmol/L (98-107); COSMO 281; CREATININE 0.7 mg/dL (0.5-0.9); ESTIMATED GFR > 60; GLUCOSE 134 mg/dL (70-104); GOT 19 U/L (10-30); GPT 20 U/L (10-36); LIPASE 19 U/L (13-60); POTASSIUM 3.6 mmol/L (3.5-5.1); SODIUM 141 mmol/L (136-145); TCO2 19 mmol/L (25-35); TOTAL BILIRUBIN 0.83 mg/dL (0.20-1.00); TOTAL PROTEIN 8.1 g/dL (6.3-8.3)
[2019-08-06] MEDS ORDERED: PEPCID IV ONE (07:22)
[2019-08-06] MEDS ORDERED: ZOFRAN IV ONE (07:23)
[2019-08-06] MEDS ORDERED: BENTYL IM ONE (07:23)
[2019-08-06] MEDS ORDERED: SODIUM CHLORIDE 0.9% INJ ONE (07:23)
[2019-08-06] MEDS ORDERED: PHENERGAN IM ONE (07:24)
[2019-08-06] MEDS ORDERED: ZOSYN 4.5 GM in NS 100 ML IV ONE (07:26)
[2019-08-06 07:39] LABS: UR AMPHETAMINES QUAL NONE DETECTED (NONE DETECT); UR BARBITUATES QUAL NONE DETECTED (NONE DETECT); UR BENZODIAZEPIN QUAL NONE DETECTED (NONE DETECT); UR CANNABINOIDS QUAL NONE DETECTED (NONE DETECT); UR COCAINE QUAL NONE DETECTED (NONE DETECT); UR METHADONE QUAL NONE DETECTED (NONE DETECT); UR OPIATES QUAL NONE DETECTED (NONE DETECT); UR OXYCODONE QUAL NONE DETECTED (NONE DETECT); UR PCP QUAL NONE DETECTED (NONE DETECT)
--- NOTE | 2019-08-06 10:31 | Diag Imaging Result Doc PS360 ---
EXAM: CT ABD/PELVIS W/IV CONT ONLY INDICATION: abd pain, vomiting, sepsis TECHNIQUE: This exam was performed using automated exposure control, adjustment of mA or kV according to patient size, and/or use of iterative reconstruction technique. COMPARISON: 07/03/2019 FINDINGS: There is likely minimal hepatic steatosis. The liver is unremarkable, otherwise. The gallbladder, spleen, pancreas, and adrenal glands are unremarkable. There is minimal focal cortical scarring versus persistent lobulation involving the right kidney. The kidneys are unremarkable, otherwise. The urinary bladder appears normal. The reproductive tract is unremarkable as imaged. The appendix is normal. No focal bowel wall thickening or bowel obstruction is appreciated. The remainder of the GI tract is unremarkable. No focal inflammatory changes, free abdominal gas, or free fluid is appreciated. [id number] lower lumbar spine degenerative changes are again noted. There is no evidence of acute osseous abnormality. IMPRESSION: Essentially stable abdomen and pelvis with no evidence of acute pathology by CT. Electronically signed by Lenin Majano 08/06/2019 10:29 AM
[2019-08-06] MEDS ORDERED: ATIVAN IV ONE (10:46)
[2019-08-06] MEDS ORDERED: LABETALOL IV ONE (10:47)
[2019-08-06] MEDS ORDERED: PHENERGAN IV PRN (11:29)
[2019-08-06] MEDS ORDERED: TYLENOL PO PRN (11:29)
[2019-08-06] MEDS ORDERED: FLAGYL 500 MG/NS 500 MG/100 ML IVPB IV SCH (12:00)
--- NOTE | 2019-08-06 12:19 | Diag Imaging Result Doc PS360 ---
CHEST-2 VIEWS - 08/06/2019 INDICATION: r/o pna COMPARISON: 08/03/2019 FINDINGS: The lungs are normally expanded and clear. Heart size and mediastinal contours are normal. No pneumothorax or pleural effusion. IMPRESSION: Negative exam. Electronically signed by Maciej Owusu 08/06/2019 12:16 PM
[2019-08-06] MEDS: LOVENOX SUBQ SCH (12:53)
[2019-08-06] MEDS ORDERED: LEVAQUIN 750 MG/D5W 750 MG/150 ML IVPB IV SCH (13:00)
[2019-08-06 13:22] LABS: HEMOGLOBIN A1C 5.5 % (4.8-6.0)
[2019-08-06] MEDS: NS 1,000 ML IV SCH ×2 (14:40→20:13)
[2019-08-06] MEDS ORDERED: LABETALOL IV PRN (15:03)
[2019-08-06] MEDS ORDERED: PRINIVIL PO ONE (15:05)
[2019-08-06] MEDS: MORPHINE IV PRN ×2 (17:38→23:27)
[2019-08-06] MEDS: PHENERGAN IV PRN (20:04)
[2019-08-06] MEDS: PEPCID IV SCH (20:04)
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
--- NOTE | 2019-08-06 22:43 | HISTORY AND PHYSICAL ---
ADDENDUM: This is an addendum to the history and physical dictated by the nurse practitioner. I agree with most components of history, physical, assessment, and plan. In brief, Ms. Ng is a 39-year-old lady with past medical history of cyclic vomiting, peptic ulcer disease, H pylori, erosive gastritis, polysubstance abuse, who claims to be clean for last 1 year. She comes in with episode of nausea and vomiting of several hours duration. Apparently, the patient has been in the emergency room twice in the last [address] scans of the abdomen and pelvis performed were largely unremarkable and she was sent home. However, she continues to have this pain and that is why she decided to come again to the emergency room. In a emergency room, she was found to have lactic acidosis and so hospitalist team was requested to admit her for intravenous fluid administration and workup for abdominal pain. At the time of my evaluation, she is still throwing up yellowish liquid. She denies any other complaints except abdominal pain and vomiting. CURRENT VITALS: Temperature of 98.4 degrees, pulse 93, respiratory rate 18, blood pressure 150/90, saturating 100% room air. PHYSICAL EXAMINATION: Morbidly obese. Not in acute distress. Oral cavity is moist. LUNGS: Air entry bilaterally equal. No wheeze, rhonchi, crackles. CARDIOVASCULAR: S1, S2 normal. No murmur or gallop. ABDOMEN: Soft. There is tenderness in left upper and left lower quadrant. NEUROLOGIC: She is alert and oriented x3. LABS: Suggestive of chronic leukocytosis. Normal hemoglobin. Normal platelet count. Normal electrolytes. She does have elevated C-reactive protein, lactic acidosis which resolved after intravenous fluid. Urine test was negative. The abdomen and pelvis CT performed in the emergency room had hepatic steatosis. Otherwise, the kidneys were largely unremarkable. The appendix was normal. There was no focal bowel wall thickening or bowel obstruction. The remainder of the GI tract was unremarkable. There was no evidence of acute osseous abnormality. ASSESSMENT AND PLAN: 1. Recurrent intractable cyclical nausea and vomiting with abdominal pain. 2. History of Helicobacter pylori peptic ulcer disease and erosive gastritis. 3. Essential hypertension. PLAN: I will admit the patient in the hospital. We will keep hydrating her with intravenous fluids. I will give her anti nausea medications as well as antacid medications. We will keep her on clear liquid diet and follow up clinically. If she does not improve, I may consider consulting Gastroenterology tomorrow. Plan of care discussed with her. Her questions have been answered. cc: Shan Bullard MD
[2019-08-07] MEDS: NS 1,000 ML IV SCH (03:18)
[2019-08-07 07:05] LABS: BASO# 0.01 X1000 (0.0-0.2); BASO% 0.1 % (0.0-0.8); EOS# 0.03 X1000 (0.0-0.7); EOS% 0.2 % (0.0-10.0); IMM GRAN# 0.06 X1000 (0.0-0.04); IMM GRAN% 0.4 % (0.0-0.5); LYMPH# 2.83 X1000 (1.2-3.4); LYMPH% 16.6 % (20.5-51.1); MCH 28.5 PG (27-31); MCHC 33.3 g/dL (33-37); MCV 85.4 FL (81-99); MONO# 1.43 X1000 (0.11-0.59); MONO% 8.4 % (1.7-9.3); MPV 11.4 FL (7.4-10.4); NEUT# 12.64 X1000 (1.4-6.5); NEUT% 74.3 % (42.2-75.2); PLT 307 X1000 (130-400); RBC 4.92 XMIL (4.2-5.4); RDW 13.9 % (11.5-14.5)
[2019-08-07 07:06] LABS: INR 1.16; PROTIME 14.9 Seconds (11.0-16.0)
[2019-08-07 07:07] LABS: PTT 29.5 Seconds (22.3-41.8)
[2019-08-07 07:11] LABS: AGAP 13; ALB/GLOB RATIO 1.3; ALKALINE PHOSPHATASE 74 U/L (32-104); BUN 4 mg/dL (8-22); CALCIUM 8.6 mg/dL (8.8-10.2); CHLORIDE 105 mmol/L (98-107); COSMO 279; CREATININE 0.7 mg/dL (0.5-0.9); ESTIMATED GFR > 60; GLUCOSE 117 mg/dL (70-104); GOT 18 U/L (10-30); GPT 16 U/L (10-36); MAGNESIUM 1.9 mg/dL (1.5-2.7); POTASSIUM 3.2 mmol/L (3.5-5.1); SODIUM 141 mmol/L (136-145); TCO2 23 mmol/L (25-35); TOTAL BILIRUBIN 0.63 mg/dL (0.20-1.00); TOTAL PROTEIN 7.2 g/dL (6.3-8.3)
[2019-08-07] MEDS: PEPCID IV SCH ×3 (07:51→21:59)
[2019-08-07] MEDS: PHENERGAN IV PRN ×4 (07:51→21:59)
[2019-08-07] MEDS: MORPHINE IV PRN ×3 (07:51→19:59)
[2019-08-07] MEDS: PRINIVIL PO SCH ×2 (07:52→09:10)
[2019-08-07] MEDS: POTASSIUM CHLORIDE 20 MEQ/SWI 20 MEQ/100 ML IVPB IV SCH ×2 (10:51→14:15)
[2019-08-07] MEDS: LOVENOX SUBQ SCH (11:22)
[2019-08-07] MEDS ORDERED: NS 1,000 ML IV SCH (14:49)
--- NOTE | 2019-08-07 15:56 | PROGRESS NOTE ---
DATE: 08/07/2019 INTERVAL HISTORY: Her last vomiting episode was yesterday evening. Since then, she has been feeling better. She wants me to advance her diet to full liquid diet. We discussed about establishing care with a stomach doctor as outpatient. I answered all of her questions. VITAL SIGNS: Temperature 97.6 degrees, pulse 79, respiratory rate 18, blood pressure 135/88. She is saturating 99% room air. PHYSICAL EXAMINATION: General: Obese, not in acute distress. HEENT: Oral cavity is moist. Lungs: Air entry bilaterally equal. No wheeze, rhonchi, crackles. Cardiovascular: S1, S2 normal. No murmur or gallop. Abdomen: Soft. Tenderness in the left lower quadrant, which is better than yesterday. Neurologic: She is alert and oriented x3. Extremities: No lower extremity edema. LABS: Suggestive of persistent leukocytosis, normal hemoglobin, normal platelet count. She does have hypokalemia which is currently being repleted. Her lactic acidosis has resolved. Her TSH is 0.48. MICROBIOLOGY: C. difficile analysis shows antigen and toxin were negative. IMAGING: No new data. ASSESSMENT AND PLAN: 1. Recurrent intractable cyclical nausea and vomiting with abdominal pain. CT scan of the abdomen and pelvis was unremarkable. I will decrease the intravenous fluid rate. Advance diet to full liquid. Continue intravenous morphine and intravenous Phenergan as needed. I will give her hyoscyamine as needed as well for abdominal pain. She should have outpatient GI follow-up considering she did have a prior history of H. pylori peptic ulcer disease and erosive gastritis. I will also continue her on famotidine for suspected acute gastritis. 2. Essential hypertension. I will continue her home lisinopril. 3. She did have a prior history of marijuana, cocaine, methamphetamine, and spice and she says she has been clean for almost 1 year. She smokes tobacco and she was counseled about quitting it. 4. Disposition. I will monitor the patient inside the hospital. Advance her diet to GI soft tomorrow as tolerated. Plan of care discussed with her. Her questions have been answered. cc: Shan Bullard MD
[2019-08-07] MEDS: SODIUM CHLORIDE 0.9% INJ PRN (21:59)
[2019-08-07] MEDS: SODIUM CHLORIDE 0.9% INJ SCH (21:59)
[2019-08-08] MEDS: MORPHINE IV PRN (03:22)
[2019-08-08] MEDS: PHENERGAN IV PRN ×2 (03:22→07:52)
[2019-08-08] MEDS: SODIUM CHLORIDE 0.9% INJ PRN (07:52)
[2019-08-08] MEDS: PEPCID IV SCH (08:00)
[2019-08-08] MEDS: SODIUM CHLORIDE 0.9% INJ SCH (08:00)
[2019-08-08] MEDS: PRINIVIL PO SCH (08:00)
[2019-08-08 08:53] LABS: BASO# 0.02 X1000 (0.0-0.2); BASO% 0.2 % (0.0-0.8); EOS# 0.05 X1000 (0.0-0.7); EOS% 0.4 % (0.0-10.0); HEMATOCRIT 41.7 % (37.0-47.0); IMM GRAN# 0.06 X1000 (0.0-0.04); IMM GRAN% 0.5 % (0.0-0.5); LYMPH# 2.82 X1000 (1.2-3.4); LYMPH% 24.1 % (20.5-51.1); MCH 28.6 PG (27-31); MCHC 33.6 g/dL (33-37); MCV 85.1 FL (81-99); MONO# 0.84 X1000 (0.11-0.59); MONO% 7.2 % (1.7-9.3); MPV 10.8 FL (7.4-10.4); NEUT# 7.89 X1000 (1.4-6.5); NEUT% 67.6 % (42.2-75.2); PLT 289 X1000 (130-400); RDW 13.8 % (11.5-14.5); WBC 11.68 X1000 (4.8-10.8)
[2019-08-08] MEDS: LEVSIN-SL SL PRN ×2 (09:22→16:36)
[2019-08-08 09:36] LABS: AGAP 11; ALB/GLOB RATIO 1.4; ALKALINE PHOSPHATASE 70 U/L (32-104); BUN 4 mg/dL (8-22); CALCIUM 8.8 mg/dL (8.8-10.2); CHLORIDE 108 mmol/L (98-107); COSMO 275; CREATININE 0.7 mg/dL (0.5-0.9); ESTIMATED GFR > 60; GLUCOSE 111 mg/dL (70-104); GOT 21 U/L (10-30); GPT 20 U/L (10-36); MAGNESIUM 1.9 mg/dL (1.5-2.7); POTASSIUM 3.7 mmol/L (3.5-5.1); SODIUM 139 mmol/L (136-145); TCO2 20 mmol/L (25-35); TOTAL BILIRUBIN 0.55 mg/dL (0.20-1.00); TOTAL PROTEIN 6.9 g/dL (6.3-8.3)
--- NOTE | 2019-08-08 11:24 | PROGRESS NOTE ---
DATE: 08/08/2019 INTERVAL HISTORY: No acute events overnight. She has been tolerating diet well. It was advanced to GI soft today. She denies any new complaints. She has not had any vomiting. She has not had any bowel movement yet. She is feeling much better today than she did before. We discussed about stopping the IV pain medications and starting her on oral medications. She states she would like to remain inside the hospital for another day considering she wanted to make sure she is in a monitored environment, and then she would also not have any ride until late in the evening time. VITALS: Temperature 98.3 degrees, pulse 70, respiratory rate 16, blood pressure 120/89 saturating 100% on room air. PHYSICAL EXAMINATION: General appearance: Morbidly obese, not in acute distress. Oral cavity: Moist. Lungs: Air entry bilaterally equal. No wheezes, rhonchi or crackles. Heart: S1 normal. No murmur, rub or gallop. Abdomen: Soft. Only mild soreness in left lower quadrant. Lower Extremities: No lower extremity edema. Neurologic: She is alert, oriented x3. LABS: Suggestive of leukocytosis. Normal hemoglobin, normal platelet count. Hyperchloremia, hypokalemia has been resolved. Otherwise largely unremarkable. C difficile analysis previously was normal. ASSESSMENT AND PLAN: 1. Recurrent intractable cyclical nausea and vomiting with abdominal pain with prior history of multiple recreational substance use. The patient has been off these recreational substances for almost 1 year as claimed by her. CT scan of the abdomen and pelvis was unremarkable. Continue soft diet. I will stop intravenous morphine and intravenous Phenergan and change it to oral tramadol and oral Phenergan. I will monitor her inside the hospital to make sure she does not have recurrent symptoms on advancing diet. I will continue H 2 blockers, famotidine twice daily, and I will provide her a referral for outpatient GI workup. This is likely in the setting of acute gastritis. 2. Essential hypertension. Continue home lisinopril. 3. Substance abuse history. She states she has been clean since almost 1 year now. On admission, her urine toxicology was unremarkable. 4. Disposition: As per patient's request, I will monitor her for another 24 hours. I will consider discharging her tomorrow. Plan of care discussed with her. All questions have been answered. cc: Shan Bullard MD
[2019-08-08] MEDS: LOVENOX SUBQ SCH (12:09)
[2019-08-08] MEDS: SENOKOT PO SCH ×2 (12:14→20:32)
[2019-08-08] MEDS: ULTRAM PO PRN ×2 (12:14→20:32)
[2019-08-08] MEDS: PHENERGAN PO PRN (16:36)
[2019-08-08] MEDS: PEPCID PO SCH (20:33)
[2019-08-09] MEDS: PHENERGAN PO PRN (05:50)
[2019-08-09 06:54] LABS: BASO# 0.01 X1000 (0.0-0.2); BASO% 0.1 % (0.0-0.8); EOS# 0.12 X1000 (0.0-0.7); HEMATOCRIT 41.6 % (37.0-47.0); HEMOGLOBIN 13.9 g/dL (12.0-16.0); IMM GRAN# 0.05 X1000 (0.0-0.04); IMM GRAN% 0.4 % (0.0-0.5); LYMPH# 3.47 X1000 (1.2-3.4); LYMPH% 29.2 % (20.5-51.1); MCH 28.4 PG (27-31); MCHC 33.4 g/dL (33-37); MCV 85.1 FL (81-99); MONO# 1.13 X1000 (0.11-0.59); MONO% 9.5 % (1.7-9.3); NEUT% 59.8 % (42.2-75.2); PLT 275 X1000 (130-400); RBC 4.89 XMIL (4.2-5.4); RDW 13.5 % (11.5-14.5); WBC 11.88 X1000 (4.8-10.8)
[2019-08-09 07:23] LABS: AGAP 12; ALB/GLOB RATIO 1.4; ALKALINE PHOSPHATASE 68 U/L (32-104); BUN 8 mg/dL (8-22); CALCIUM 8.5 mg/dL (8.8-10.2); CHLORIDE 106 mmol/L (98-107); COSMO 278; CREATININE 0.6 mg/dL (0.5-0.9); ESTIMATED GFR > 60; GLUCOSE 110 mg/dL (70-104); GOT 15 U/L (10-30); GPT 18 U/L (10-36); MAGNESIUM 1.9 mg/dL (1.5-2.7); POTASSIUM 3.5 mmol/L (3.5-5.1); SODIUM 140 mmol/L (136-145); TCO2 22 mmol/L (25-35); TOTAL BILIRUBIN 0.49 mg/dL (0.20-1.00); TOTAL PROTEIN 6.9 g/dL (6.3-8.3)
[2019-08-09] MEDS: PEPCID PO SCH (08:22)
[2019-08-09] MEDS: PRINIVIL PO SCH (08:22)
[2019-08-09] MEDS: ULTRAM PO PRN (08:23)
[2019-08-09 11:24] VITALS: BP 127/85
[2019-08-09] MEDS: SENOKOT PO SCH (12:05)
[2019-08-09] MEDS: LOVENOX SUBQ SCH (12:09)
[2019-08-09] MEDS ORDERED: FLU VACCINE IM ONE (12:10)
--- NOTE | 2019-08-10 04:53 | DISCHARGE SUMMARY ---
ADMISSION DATE: 08/06/2019 DISCHARGE DATE: 08/09/2019 DISCHARGE DISPOSITION: Home. DISCHARGE CONDITION: Hemodynamically stable. She is tolerating GI soft diet without any nausea, vomiting, or recurrence of abdominal pain. She is alert and oriented x3. I had an extensive discussion with her about continuing abstaining from recreational substances as well as for establishing care with a GI doctor. I answered all of her questions. DISCHARGE DIAGNOSES: 1. Recurrent intractable cyclical nausea and vomiting with abdominal pain. 2. Essential hypertension. 3. Prior history of substance abuse. However, she has been clean since last 1 year. 4. Active tobacco abuse OTHER DIAGNOSES: 1. History of morbid obesity. 2. History of frequent urinary tract infections. 3. History of chronic leukocytosis for which she was seen by Dr. Damian. 4. History of panic attacks. 5. History of post traumatic stress disorder. DISCHARGE MEDICATIONS: 1. Lisinopril 20 mg daily. 2. Hyoscyamine sublingual 0.25 mg 4 times a day as needed for abdominal cramps. 3. Famotidine 20 mg b.i.d. 15 tablets have been prescribed. 4. Promethazine 25 mg every 8 hours for nausea and vomiting 10 tablets have been prescribed. 5. Acetaminophen 650 mg every 6 hours as needed for abdominal pain. VITALS: At the time of discharge, temperature 98.6 degrees, pulse 86, respiratory 16, blood pressure 127/85, and saturating 98% on room air. PHYSICAL EXAMINATION: General: Does not appear in any acute distress. HEENT: Oral cavity is moist. Lungs: Air entry bilaterally equal. No wheeze, rhonchi, or crackles. Cardiovascular: S1, S2 normal. No murmur or gallop. Abdomen: Soft, nontender, obese. Not in acute distress. Extremities: No lower extremity edema. She is alert and oriented x3. SIGNIFICANT LABORATORY DURING HOSPITAL ADMISSION AND DISCHARGE: [place], [place] [address] which was 11,000 at the time of discharge, hemoglobin 13.9 and platelet 275,000. She did have hypokalemia with potassium of 3.2 which improved to 3.5 at the time of discharge. Her BUN is 8, creatinine 0.6, blood and glucose 110. TSH is 0.48. Plasma lactate on presentation was 2.4 suggestive of lactic acidosis which improved after intravenous fluids. Urine toxicology was unremarkable. Urine test was unremarkable. C. Diff testing for antigen and toxin analysis was negative. SIGNIFICANT IMAGING DURING HOSPITAL ADMISSION: Abdomen and pelvis CT on presentation had stable abdominal pelvis with no evidence of acute pathology by CT. Chest x-ray did not have an acute cardiopulmonary process. HOSPITAL COURSE SUMMARY: Ms. Ng is a 39 year old lady with past medical history of polysubstance abuse and cyclic vomiting syndrome came in with yet another episode of nausea, vomiting, and abdominal pain. Apparently, the patient has been clean of any recreational substance for at least 1 year as was claimed by her. Urine toxicology in the emergency room was unremarkable. She has had 3 such presentations in the last 3 months, and has had 3 CT scans of abdomen and pelvis. In the emergency room, she was having intractable vomiting and abdominal pain so the hospitalist team was consulted for further management. Her vitals on admission was largely unremarkable except mild tachycardia and hypertension. She was admitted for further management, and was started on intravenous fluids and intravenous antiemetic. She was also kept n.p.o. With these measures, her symptoms gradually improved, and later on she was started on diet and the diet was advanced as tolerated. At the time of dictation, she is alert and oriented. Denies any more abdominal pain, nausea and vomiting has pretty much subsided so it was decided to discharge her with outpatient GI followup. TIME SPENT: More than 30 minutes were spent discharging this patient. All of her questions were answered satisfactorily. cc: Shan Bullard MD MTDD
== END 2019-08-09 13:30 | disposition home or self-care (01) | DRG 394 ==
LOC: ED 05:44 → 4N 11:37
PROVIDERS: ATTEND Internal Medicine

== ENCOUNTER 2020-02-22 18:40 | Observation (INO) ==
--- NOTE | 2020-02-22 18:58 | PROVIDER DOCUMENTATION ---
HPI-Abdominal Pain/GI Problem - General Chief Complaint: Nausea/Vomiting Stated Complaint: N/V Time Seen by Provider: 02/22/20 18:57 Source: patient Allergies/Adverse Reactions: Patient Allergies Allergy/AdvReac Type Severity Reaction Status Date / Time bupropion [From Wellbutrin] Allergy HEADACHE Verified 02/22/20 18:54 citalopram [From Celexa] Allergy Unknown Verified 02/22/20 18:54 ondansetron Allergy HEADACHE Verified 02/22/20 18:54 [From Zofran (as hydrochloride)] sertraline [From Zoloft] Allergy HEADACHE Verified 02/22/20 18:54 adhesive tape AdvReac Unknown Verified 02/22/20 18:54 fluoxetine [From Prozac] AdvReac Unknown Verified 02/22/20 18:54 Home Medications: Home Medication List Medication Instructions Recorded Confirmed Last Taken Type LISINOpril [Prinivil] 1 tab PO DAILY 01/20/20 02/22/20 Unknown History Promethazine [Phenergan] 25 tab PO Q6H PRN PRN #18 tab 02/22/20 02/22/20 Unknown Rx - History of Present Illness-ABD Nature of Presenting Problems: Patient is a 40 year old white female with history of cyclical vomiting syndrome, obesity,leukocytosis with unremarkable abdominal CT, and HTN who presents to ER a second time since this am for intractable nausea and vomiting. Patient reports eating takeout food from [place] [employer]. No relief with oral phenergan. Patient has received 6 abdominal/pelvic CT's in past year which were unremarkable. Review of Systems - Adult - REVIEW OF SYSTEMS - ADULT Constitutional: denies: chills, fever Eyes: reports: no symptoms reported Ears, Nose, Mouth & Throat: reports: no symptoms reported Cardiovascular: reports: no symptoms reported Respiratory: reports: no symptoms reported Gastrointestinal: reports: see HPI, nausea, vomiting Genitourinary: reports: no symptoms reported Musculoskeletal: reports: no symptoms reported Integumentary: reports: no symptoms reported Neurological: reports: no symptoms reported Psychiatric: reports: no symptoms reported Endocrine: reports: no symptoms reported Hematologic/Lymphatic: reports: no symptoms reported Allergic/Immunologic: reports: no symptoms reported All Other Systems: Reviewed and Negative Past History - Adult - PAST MEDICAL HISTORY-ADULT Review of Records: reports: Old Records Reviewed, Nursing Assessment Review, Medications Reviewed, Social history reviewed & non-contributory. 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) Neurological: reports: denies history Psychiatric: reports: bipolar Endocrine/Immune: reports: Diabetes (gestational) Other Conditions: reports: denies history - PRIOR SURGERIES/PROCEDURES Surgical/Procedure History: reports: orthopedic (extremity) (fixed club feet) - PRIOR HOSPITALIZATIONS Prior Hospitalizations: reports: for similar symptoms - IMMUNIZATION STATUS Childhood Immunizations: See Nurse Assessment Flu Vaccine: See Nurse Assessment - FAMILY HISTORY Family History: reviewed, not pertinent Physical Exam-General - PHYSICAL EXAM-ADULT Initial Vital Signs Reviewed: Yes - CONSTITUTIONAL General Appearance: alert, obese, other (semimoist membranes) - EYES Eyes: other (clear) - HEAD, EARS, NOSE, MOUTH & THROAT HENMT: normocephalic/atraumatic, moist mucous membranes - NECK Neck: non-tender, full range of motion, supple - RESPIRATORY Respiratory: lungs clear - CARDIOVASCULAR Cardiovascular: regular rate, rhythm - GASTROINTESTINAL (ABDOMEN) Abdominal Exam: soft, no organomegaly, no pulsatile mass, tenderness (diffuse abdominal tenderness). negative: guarding, rebound Progress - PLAN OF CARE/RESULTS Progress/Plan/Lab Results: Vital Signs - 8 hr 02/22/20 18:50 Temperature 99.1 F Pulse Rate 96 H Respiratory Rate 18 Blood Pressure 150/106 O2 Sat by Pulse Oximetry 98 Result Diagrams: 02/22/20 19:00 02/22/20 19:00 - XRAY 1 XRAY Study: Abdomen, Pelvis XRAY Interpretation: NAD, no obstruction Departure - Departure Date of Disposition Decision: 02/22/20 Time of Disposition Decision: 19:53 DIAGNOSIS: Intractable nausea and vomiting, Cyclical vomiting syndrome Leukocytosis Qualifiers: Leukocytosis type: unspecified Qualified Code(s): D72.829 - Elevated white blood cell count, unspecified Disposition: ADMITTED INPATIENT 09 Certified Medical Emergency: Emergent Condition: Stable Referrals and Follow-Ups: Ban Ken CRNP [Primary Care Provider] - - Critical Care Note This patient required my direct & personal management of CC.: No Attestation - Physician/ MARLEN Attestation Patient care was provided by Advanced Practice Provider:: No The physician spent face to face time with patient:: Yes Advanced Practice Provider documentation review:: Supervising physician onsite and consulted in the evaluation and care of this patient. The physician did have a face to face encounter with the patient.
[2020-02-22] MEDS ORDERED: PHENERGAN IM ONE (19:03)
[2020-02-22] MEDS ORDERED: NS 1,000 ML IV ONE ×2 (19:06→19:34)
[2020-02-22 19:18] LABS: BASO# 0.02 X1000 (0.0-0.2); BASO% 0.1 % (0.0-0.8); HEMATOCRIT 45.4 % (37.0-47.0); HEMOGLOBIN 15.6 g/dL (12.0-16.0); IMM GRAN# 0.08 X1000 (0.0-0.04); IMM GRAN% 0.3 % (0.0-0.5); LYMPH# 1.59 X1000 (1.2-3.4); LYMPH% 6.5 % (20.5-51.1); MCH 28.7 PG (27-31); MCHC 34.4 g/dL (33-37); MCV 83.5 FL (81-99); MONO# 0.59 X1000 (0.11-0.59); MONO% 2.4 % (1.7-9.3); MPV 11.4 FL (7.4-10.4); NEUT% 90.7 % (42.2-75.2); PLT 356 X1000 (130-400); RBC 5.44 XMIL (4.2-5.4); RDW 13.7 % (11.5-14.5); WBC 24.28 X1000 (4.8-10.8)
[2020-02-22 19:27] LABS: AGAP 19; BUN 5 mg/dL (8-22); CALCIUM 9.6 mg/dL (8.8-10.2); CHLORIDE 97 mmol/L (98-107); COSMO 272; CREATININE 0.7 mg/dL (0.5-0.9); ESTIMATED GFR > 60; GLUCOSE 144 mg/dL (70-104); POTASSIUM 3.4 mmol/L (3.5-5.1); SODIUM 136 mmol/L (136-145); TCO2 20 mmol/L (25-35)
[2020-02-22] MEDS ORDERED: SODIUM CHLORIDE 0.9% INJ ONE ×2 (19:36→19:40)
[2020-02-22] MEDS ORDERED: PHENERGAN IV PRN (19:36)
[2020-02-22] MEDS ORDERED: MORPHINE IV PRN (19:40)
[2020-02-22] MEDS ORDERED: PEPCID IV ONE (19:40)
--- NOTE | 2020-02-22 19:43 | Diag Imaging Result Doc PS360 ---
EXAM: FLAT/UPRIGHT ABD/1 VIEW CHEST - 02/22/2020 HISTORY: nausea, vomiting TECHNIQUE: Supine and upright abdomen and one view chest COMPARISON: 01/20/2020 chest two views FINDINGS: There is gas visible in mostly nondistended small bowel and colon. There is no substantial gaseous bowel distention identified. There is no free air identified. Upright chest shows normal heart size. The lungs appear clear. There is no pleural effusion or pneumothorax identified. IMPRESSION: Nonspecific bowel gas pattern. No evidence of acute cardiac pulmonary disease. Electronically signed by Ricardo Fotechlesly 02/22/2020 7:40 PM
[2020-02-22] MEDS ORDERED: ZOSYN 3.375 GM in NS 50 ML IV ONE (19:49)
[2020-02-22] MEDS ORDERED: SODIUM CHLORIDE 0.9% INJ SCH (22:15)
[2020-02-22] MEDS: PROTONIX IV SCH (22:48)
[2020-02-22] MEDS: ZOSYN 3.375 GM in NS 50 ML IV SCH (22:50)
[2020-02-23] MEDS ORDERED: ZOSYN 3.375 GM in NS 50 ML IV SCH (02:00)
[2020-02-23] MEDS ORDERED: MORPHINE IV PRN (02:38)
[2020-02-23] MEDS: ZOSYN 3.375 GM in NS 50 ML IV SCH ×4 (04:04→22:47)
[2020-02-23 05:50] LABS: BASO# 0.02 X1000 (0.0-0.2); BASO% 0.1 % (0.0-0.8); EOS# 0.05 X1000 (0.0-0.7); EOS% 0.3 % (0.0-10.0); HEMATOCRIT 39.3 % (37.0-47.0); HEMOGLOBIN 12.7 g/dL (12.0-16.0); IMM GRAN# 0.04 X1000 (0.0-0.04); IMM GRAN% 0.2 % (0.0-0.5); LYMPH% 22.5 % (20.5-51.1); MCH 27.9 PG (27-31); MCHC 32.3 g/dL (33-37); MCV 86.4 FL (81-99); MONO% 8.2 % (1.7-9.3); MPV 11.3 FL (7.4-10.4); NEUT# 12.55 X1000 (1.4-6.5); NEUT% 68.7 % (42.2-75.2); PLT 286 X1000 (130-400); RBC 4.55 XMIL (4.2-5.4); WBC 18.26 X1000 (4.8-10.8)
[2020-02-23 05:58] LABS: AGAP 13; ALBUMIN 3.6 g/dL (3.5-5.0); BUN 6 mg/dL (8-22); CALCIUM 8.4 mg/dL (8.8-10.2); CHLORIDE 105 mmol/L (98-107); COSMO 276; CREATININE 0.6 mg/dL (0.5-0.9); ESTIMATED GFR > 60; GLUCOSE 113 mg/dL (70-104); PHOSPHORUS 3.6 mg/dL (2.7-4.5); POTASSIUM 2.9 mmol/L (3.5-5.1); SODIUM 139 mmol/L (136-145); TCO2 21 mmol/L (25-35)
[2020-02-23] MEDS ORDERED: SODIUM CHLORIDE 0.9% INJ PRN (06:15)
[2020-02-23] MEDS: POTASSIUM CHLORIDE 20 MEQ/SWI 20 MEQ/100 ML IVPB IV SCH ×2 (08:44→12:07)
[2020-02-23] MEDS: PRINIVIL PO SCH (08:44)
[2020-02-23] MEDS: NS 1,000 ML IV SCH ×2 (08:45→17:00)
[2020-02-23] MEDS ORDERED: TORADOL IV SCH (08:45)
[2020-02-23] MEDS ORDERED: KLOR-CON PO ONE (10:27)
[2020-02-23] MEDS: NICODERM PATCH TD SCH (10:33)
--- NOTE | 2020-02-23 13:17 | HISTORY AND PHYSICAL ---
PRIMARY CARE PHYSICIAN: ADRIANNE Cervantes. CHIEF COMPLAINT: Nausea, vomiting, intractable x1 day that progressively worsened. HISTORY OF PRESENTING ILLNESS: This is a 40-year-old female who presents to [facility] ER for the second time on 02/22/2020 with the same complaints of intractable nausea, vomiting. Has a history of cyclical vomiting syndrome and has been clean from drugs 14 months, was seen earlier in the ER on 02/22/2020 and given a prescription for Phenergan but did not have any relief and vomited 5 times total from the time she left the ER that morning until she returned back last night. Her workup showed an abdomen x-ray with a nonspecific bowel gas pattern. Her white blood cell count was noted to be 24.28 with a repeat this morning of 18.26. Her potassium was 2.9 this morning also. It was noted on her laboratory data from the first visit to the ER yesterday morning that her urinalysis was clear, her urine drug screen was clear, so those were not repeated, but she was admitted for further evaluation and treatment. PAST MEDICAL HISTORY: Hypertension, hyperlipidemia, GERD, cyclical vomiting syndrome, chronic UTIs, chronic back pain, bipolar, gestational diabetes. PAST SURGICAL HISTORY: A fixed clubfoot. FAMILY HISTORY: Reviewed and noncontributory. SOCIAL HISTORY: She currently lives alone. Smokes a half a pack of cigarettes a day and has done so for 10+ years and denies any alcohol or illicit drug use. Again, she has a history of drug use and has been clean for 14 months. ALLERGIES: Bupropion, citalopram, ondansetron, fluoxetine, and adhesive tape. HOME MEDICATIONS: She takes lisinopril 20 mg p.o. daily and she had a prescription for Phenergan 25 mg p.o. q.6 hours p.r.n. and we will hold that. LABORATORY DATA: Showed a white blood cell count of 24.28, hemoglobin 15.6, hematocrit 45.4, platelets 356,000. Sodium 136, potassium 3.4, chloride 97, CO2 20, BUN of 5, creatinine 0.7, glucose 144. Serum test was negative. Repeat white blood cell count this morning was 18.26, potassium this a.m. was 2.9. From earlier yesterday's ER visit, she did have a UA that was clear and a urine drug screen that showed none detected. IMAGING: Abdomen x-ray showed a nonspecific bowel gas pattern. REVIEW OF SYSTEMS: She denied any fever, chills, blurred vision, dizziness, chest pain, coughing, shortness of breath. She has had nausea with intractable vomiting, some mild abdominal pain secondary to the vomiting, and denied any diarrhea, constipation or burning or hurting with urination. PHYSICAL EXAMINATION: VITAL SIGNS: On arrival, she had a temperature of 99.1 degrees, pulse 96, respirations 18, blood pressure 150/106, saturating 98% on room air. GENERAL: This is a 40-year-old female who is lying in the bed and answers questions appropriately. HEENT: Normocephalic, atraumatic. Normal ENT inspection. Oropharynx and nares are clear. EYES: Pupils are equal, round, reactive to light and accommodation. Extraocular movements are intact. NECK: Normal inspection, normal range of motion. LUNGS: Clear to auscultation bilaterally with equal lung expansion and chest wall movement. HEART: With regular rate and rhythm. No murmurs, rubs, or gallops. ABDOMEN: Soft, nontender, nondistended. Bowel sounds are present x4 quadrants. MUSCULOSKELETAL: She had 5/5 strength x4 extremities. NEUROLOGICAL: The cranial nerves 2-12 appear grossly intact. ASSESSMENT: 1. Cyclical hyperemesis syndrome. 2. Leukocytosis, most likely reactive. 3. Hypokalemia. 4. Tobacco abuse. PLAN: She was admitted to the medical unit, was initially held n.p.o. We are going to advance her to some clear liquids at this time. If she has any further vomiting, we may have to take her back down to an n.p.o. status. She is on normal saline at 125 mL an hour, Protonix 40 mg IV every 24. She was placed on Zosyn 3.375 g IV q.6 prophylactically. We are going to treat her with potassium 40 mEq IV x1 and repeat a CBC, BMP in the a.m. Blood cultures x2 are pending. Further orders after seen by attending. Dictated by ADRAINNE Gan for Heron Duncan MD Addendum: Patient seen and examined by myself. Agree with ADRIANNE note. It reflects my assessment and plan. Patient is being admitted to hospital for cyclical hyperemesis. She had 5 CT of abdomen during a year and all of them negative so will continue with empiric antibiotics and will go from there. cc: ADRIANNE Gan MD Anna M. Dumas, CRNP MTDD
[2020-02-23] MEDS ORDERED: COLACE PO PRN (13:39)
[2020-02-23] MEDS: TORADOL IV SCH ×2 (14:22→20:16)
[2020-02-23] MEDS: PROTONIX IV SCH ×2 (20:16→22:46)
[2020-02-24] MEDS: NS 1,000 ML IV SCH ×2 (00:23→07:44)
[2020-02-24] MEDS: TORADOL IV SCH ×3 (03:00→09:26)
[2020-02-24] MEDS: ZOSYN 3.375 GM in NS 50 ML IV SCH ×2 (03:44→09:26)
[2020-02-24 05:50] LABS: BASO# 0.01 X1000 (0.0-0.2); BASO% 0.1 % (0.0-0.8); EOS# 0.08 X1000 (0.0-0.7); EOS% 0.7 % (0.0-10.0); HEMATOCRIT 39.3 % (37.0-47.0); HEMOGLOBIN 12.3 g/dL (12.0-16.0); IMM GRAN# 0.04 X1000 (0.0-0.04); IMM GRAN% 0.3 % (0.0-0.5); LYMPH# 3.08 X1000 (1.2-3.4); LYMPH% 25.6 % (20.5-51.1); MCH 27.6 PG (27-31); MCHC 31.3 g/dL (33-37); MCV 88.3 FL (81-99); MONO# 0.95 X1000 (0.11-0.59); MONO% 7.9 % (1.7-9.3); MPV 11.5 FL (7.4-10.4); NEUT# 7.87 X1000 (1.4-6.5); NEUT% 65.4 % (42.2-75.2); PLT 249 X1000 (130-400); RBC 4.45 XMIL (4.2-5.4); RDW 14.3 % (11.5-14.5); WBC 12.03 X1000 (4.8-10.8)
[2020-02-24 06:07] LABS: AGAP 11; ALBUMIN 3.4 g/dL (3.5-5.0); BUN 6 mg/dL (8-22); CALCIUM 8.2 mg/dL (8.8-10.2); CHLORIDE 107 mmol/L (98-107); COSMO 273; CREATININE 0.7 mg/dL (0.5-0.9); ESTIMATED GFR > 60; GLUCOSE 99 mg/dL (70-104); PHOSPHORUS 2.2 mg/dL (2.7-4.5); POTASSIUM 3.7 mmol/L (3.5-5.1); SODIUM 138 mmol/L (136-145); TCO2 20 mmol/L (25-35)
[2020-02-24] MEDS: NICODERM PATCH TD SCH ×2 (07:44→08:21)
[2020-02-24] MEDS: PRINIVIL PO SCH ×2 (07:45→08:22)
[2020-02-24 08:36] VITALS: BP 116/88
--- NOTE | 2020-02-24 13:47 | DISCHARGE SUMMARY ---
ADMISSION DATE: 02/22/2020 DISCHARGE DATE: 02/24/2020 PRIMARY CARE PHYSICIAN: ADRIANNE Cruz. ADMISSION DIAGNOSES: 1. Cyclical hyperemesis syndrome. 2. Leukocytosis most likely reactive. 3. Hypokalemia. 4. Tobacco abuse. DISCHARGE DIAGNOSES: 1. Cyclical hyperemesis syndrome, resolved. 2. Leukocytosis most likely reactive, improved. 3. Hypokalemia, resolved. 4. Tobacco abuse. SUMMARY OF FINDINGS: This is a 40-year-old female who presented for the second time on 02/22/2020 with the same complaint of intractable nausea, vomiting. Had a history of cyclical vomiting syndrome, has been clean from drugs for 14 months. On her first arrival to the emergency room on 02/22/2020, she was discharged and given a prescription for Phenergan, but continued to vomit up to 5 times after taking the Phenergan, was unable to keep it down, so she was admitted, placed on IV fluids and initially held n.p.o. We have slowly advanced her diet. She is able to tolerate now and no further nausea and vomiting. States she is feeling much better today. We supplemented her electrolytes and is now felt that she can safely be discharged home. DISCHARGE MEDICATIONS: Includes a prescription for Levaquin 750 mg p.o. daily (#7 no refills), lisinopril 20 mg p.o. daily, Flagyl 500 mg p.o. t.i.d. (#21 with no refills), NicoDerm patch 21 mg daily and continue her Phenergan 25 mg p.o. q.6 hours p.r.n. FOLLOWUP: She is to follow up with her primary care physician in 1 to 2 weeks and call the office for an appointment. TIME SPENT: 35 minute discharge. Dictated by ADRIANNE Gan for Heron Duncan MD cc: ADRIANNE Gan MD Anna M. Dumas, CRNP
== END 2020-02-24 10:52 | disposition home or self-care (01) ==
LOC: P.MEDSURG 18:40 → P.ED 18:40
PROVIDERS: ATTEND Internal Medicine